=== PATIENT | female | born 1990 | race African-American/Black ===

== ENCOUNTER 2017-09-18 09:08 | Emergency (ER) | payer OTHER ==
[~2017-09-18] VITALS: Ht 167.6 cm; Wt 92.9 kg
[2017-09-18] MEDS ORDERED: KEFLEX500 MG PO (11:53)
[2017-09-18] MEDS ORDERED: MOTRIN800 MG PO (11:53)
[2017-09-18 12:43] VITALS: BP 114/63
== END 2017-09-18 12:44 | disposition home or self-care (01) ==
LOC: EME 09:08
PROC: 0HQGXZZ Repair Left Hand Skin, External Approach (ICD-10-PCS; principal; 2017-09-18)
DX: S61.217A Laceration without foreign body of left little finger without damage to nail, initial encounter (principal); S62.637A Displaced fracture of distal phalanx of left little finger, initial encounter for closed fracture; W45.8XXA Other foreign body or object entering through skin, initial encounter; Y93.E5 Activity, floor mopping and cleaning; F17.200 Nicotine dependence, unspecified, uncomplicated; F12.90 Cannabis use, unspecified, uncomplicated
CPT/HCPCS: 73140; 99281; 99284; S0020

== ENCOUNTER 2017-09-27 17:06 | Emergency (ER) | payer OTHER ==
[~2017-09-27] VITALS: Ht 167.6 cm; Wt 93.1 kg
[~2017-09-27 17:06] MED LIST: KEFLEX500 MG PO; MOTRIN800 MG PO
[2017-09-27 20:38] VITALS: BP 99/50
== END 2017-09-27 20:40 | disposition home or self-care (01) ==
LOC: EME 17:06
DX: S61.217D Laceration without foreign body of left little finger without damage to nail, subsequent encounter (principal); J45.909 Unspecified asthma, uncomplicated
CPT/HCPCS: 99281; 99283

== ENCOUNTER 2017-10-19 06:17 | Emergency (ER) | payer OTHER ==
[~2017-10-19] VITALS: Ht 167.6 cm; Wt 95.5 kg
[2017-10-19 06:38] LABS: HEMATOCRIT 38.8 % (36.0-46.0); HEMOGLOBIN 13.4 G/DL (11.9-15.5); MCH 28.5 PG (29.0-34.0); MCHC 34.5 G/DL (30.0-36.0); MCV 82.4 FL (83-99); PLATELET COUNT 255 K/uL (156-360); RBC DIS.WIDTH-CV 12.9 % (11.8-14.6); RBC DIS.WIDTH-SD 39.1 % (39-53); RED BLOOD COUNT 4.71 M/uL (3.80-5.20)
[2017-10-19 07:04] LABS: ALBUMIN 4.7 G/DL (3.2-4.8); CHLORIDE 104 MEQ/L (99-109); POTASSIUM 3.8 MEQ/L (3.7-5.4); SODIUM 139 MEQ/L (136-147); TOTAL BILIRUBIN 0.3 MG/DL (0.0-1.0)
[2017-10-19 07:09] LABS: ALKALINE PHOSPHATASE 64 IU/L (3-129); ALT (GPT) 21 IU/L (3-49); AST (GOT) 20 IU/L (2-34); CREATININE 0.6 MG/DL (0.6-1.3); GFR ESTIMATE (CALCULATED) > 59 mL/min/; GLUCOSE 135 mg/dL (70-99); TOTAL PROTEIN 8.1 G/DL (6.4-8.3); UREA NITROGEN (BUN) 10 mg/dL (9-23)
[2017-10-19 07:13] LABS: QUANTITATIVE HCG < 4.0 MIU/ML
[2017-10-19 08:15] LABS: LIPASE 30 U/L (1.0-51.0)
[2017-10-19] MEDS ORDERED: ZOFRAN ODT4 MG PO (09:03)
[2017-10-19] MEDS ORDERED: BENTYL10 MG PO (09:03)
[2017-10-19 09:35] VITALS: BP 118/65
== END 2017-10-19 09:41 | disposition home or self-care (01) ==
LOC: EME 06:17
DX: R10.9 Unspecified abdominal pain (principal); R11.2 Nausea with vomiting, unspecified
CPT/HCPCS: 74177; 80053; 81003; 83690; 84702; 85027; 99281; 99284; J1885; J2405; J7030